=== PATIENT | female | born 1950 | race Two or more races ===

== ENCOUNTER 2022-11-03 06:14 | Day surgery (SDC) | payer OTHER ==
[~2022-11-03] VITALS: Ht 152.4 cm; Wt 5.4 kg
[~2022-11-03 06:14] MED LIST: ANASTROZOLE1 MG PO; CARAFATE1 GM PO; LANTUS; PANTOPRAZOLE SO40 M2 PO
== END 2022-11-03 23:00 | disposition home or self-care (01) ==
LOC: CIR.AMB 06:14 → EDBD 15:00 → CIR.AMB 15:00
PROVIDERS: ATTEND Surgery
DX: C50.512 Malignant neoplasm of lower-outer quadrant of left female breast (principal); R59.0 Localized enlarged lymph nodes; Z20.822 Contact with and (suspected) exposure to COVID-19; E11.9 Type 2 diabetes mellitus without complications; Z79.4 Long term (current) use of insulin
CPT/HCPCS: 19301; 38525; 19281; A9541; L8699